=== PATIENT | male | born 1945 | race Caucasian/White ===

== ENCOUNTER 2018-10-07 20:39 | Emergency (ER) | payer OTHER ==
--- NOTE | 2018-10-07 21:47 | EDPHY ---
H & P Time Seen by Provider: 10/07/18 21:27 HPI/ROS: CHIEF COMPLAINT: Left wrist pain HISTORY OF PRESENT ILLNESS: Patient is a 73-year-old male who presents emergency department left wrist pain. His pain started a few days ago after moving. The patient stated he needed to move most of his things with his left hand and arm. The patient woke up the next morning with mild left wrist pain. However this morning his pain was much more severe. He also notes swelling. No fever. REVIEW OF SYSTEMS: 10 systems were reveiwed and are negative with the exception of the elements mentioned in the history of present illness. Past Medical/Surgical History: Includes facial fracture Smoking Status: Light smoker Physical Exam: Vitals noted General Appearance: Alert and no distress. Head: Pupils equal. Normal. Respiratory: No respiratory distress. Cardiac: regular rate and rhythm. Extremities: The patient has mild swelling in his left wrist. There is moderate tenderness to palpation. No warmth or noted erythema. No streaking up the arm. Neurovascular intact distally. Skin: No rashes or lesions. Neuro: Alert. Normal mood and affect. Constitutional: Initial Vital Signs Temperature (C) 36.4 C 10/07/18 20:51 Heart Rate 61 10/07/18 20:51 Respiratory Rate 16 10/07/18 20:51 Blood Pressure 144/80 H 10/07/18 20:51 O2 Sat (%) 98 10/07/18 20:51 O2 Delivery Mode Room Air Allergies/Adverse Reactions: No Known Allergies Allergy (Unverified 10/07/18 20:51) Home Medications: Medication Instructions Recorded Hydrocodone/APAP 5/325 [[place] 1 - 2 tab PO Q4 #13 tab 10/07/18 5/325 (RX)] Ibuprofen 600 mg PO Q6 #13 tablet 10/07/18 Medical Decision Making - Diagnostics Imaging Results: Imaging Impressions Wrist X-Ray 10/07/18 21:13 Impression: 1. No acute osseous findings. 2. Degenerative change as above ED Course/Re-evaluation: In the emergency department an x-ray of his left wrist was ordered. Left wrist x-ray: Please refer the dictated report. There is no acute abnormality. The patient has degenerative joint disease. Based on the patient's physical exam I do not feel he needs his joint tapped. I doubt a septic joint. I discussed the results with the patient. The patient was placed in a Velcro thumb spica splint for comfort. The patient was given anti-inflammatory medicines and pain medications. Patient was given follow-up with Orthopedics. He is given warnings prior to leaving. Differential Diagnosis: My differential includes but not limited to fracture, dislocation, gout, pseudogout, septic joint, arthritis Departure - Departure Disposition: Home, Routine, Self-Care Clinical Impression: Wrist pain, acute Qualifiers: Laterality: left Qualified Code(s): M25.532 - Pain in left wrist Condition: Good Instructions: Wrist Injury (ED) Additional Instructions: Return with increasing pain, redness, fever or any other concerns. Referrals: Zay Mistry MD [Medical Doctor] - 5-7 days, if not improved Prescriptions: Hydrocodone/APAP 5/325 [[place] 5/325 (RX)] 1 - 2 tab PO Q4 #13 tab Ibuprofen 600 mg PO Q6 #13 tablet
[2018-10-07] MEDS ORDERED: OXYCODONE/APAP 5/325 TAB PO ONE (21:58)
[2018-10-07] MEDS ORDERED: IBUPROFEN 600 MG TAB PO ONE (21:58)
[2018-10-07] MEDS ORDERED: OXYCODONE/APAP 5/325MG PREPACK#4 BTL TAKEHOME ONE (22:11)
[2018-10-07 22:15] VITALS: BP 139/69
== END 2018-10-07 22:13 | disposition home or self-care (01) ==
DX: M19.032 Primary osteoarthritis, left wrist (principal)
CPT/HCPCS: 73110; 99284; L3807